=== PATIENT | female | born 1985 | race Caucasian/White ===

== ENCOUNTER 2018-06-29 08:30 | Emergency (ER) | payer BC ==
[2018-06-29 08:47] VITALS: BP 154/90; PULSE 84; O2SAT 99
--- NOTE | 2018-06-29 08:57 | ERPHSYRPT ---
- History of Present Illness Time Seen by Provider: 06/29/18 08:51 Source: patient Exam Limitations: no limitations Patient Subjective Stated Complaint: 9 years ago had jaw broken.. staets was hit in the jaw this weekend while playing with child.. states her jaw was dislocated but it has gone back into place. c/o pain and swelling to right ride of face Triage Nursing Assessment: alert and oriented.. states was hit in the chin this past weekend causing her jaw to dislocate.. has hx fractured jaw 9 years ago. states her jaw has gone back into place by itself. c/oi swelling to right side of face. no LOC Physician History: 32-year-old white female arrives with complaint of pain in her jaw symptoms since 3 days. According to patient she had a child jump up and hit her in the chin with patient's head 3 days ago. Patient feels like her jaw dislocated she feels like it went back in. She is complaining of pain in her jaw both sides states she cannot sleep secondary to the pain. Patient does have a history of a fracture of her jaw 8 or 9 years ago. Past medical history patient gives history of jaw fracture as above. Past surgical history thyroidectomy. Social history denies tobacco alcohol or illicit drug use. Timing/Duration: day(s) (3 days) Severity: moderate Modifying Factors: Improves With: nothing Associated Symptoms: No nausea, No vomiting, No abdominal pain, No shortness of breath, No heartburn, No diaphoresis, No cough, No chills, No chest pain, No fever, No headaches, No loss of appetite, No malaise, No rash, No syncope, No seizure, No weakness Allergies/Adverse Reactions: azithromycin Allergy (Verified 06/29/18 09:25) Immunizations Up to Date: Yes - Review of Systems Constitutional: No Fever, No Chills Eyes: No Symptoms Ears, Nose, & Throat: Mouth Pain (bilateral jaw pain), No Ear Pain, No Ear Discharge, No Hearing Changes, No Tinnitus, No Nose Pain, No Nose Congestion, No Nose Discharge, No Sinus Drainage, No Epistaxis, No Mouth Swelling, No Loose Teeth, No Throat Pain, No Throat Swelling, No Hoarse, No Painful Swallowing, No Snoring, No Stridor Respiratory: No Cough, No Dyspnea Cardiac: No Chest Pain, No Edema, No Syncope Abdominal/Gastrointestinal: No Abdominal Pain, No Nausea, No Vomiting, No Diarrhea Genitourinary Symptoms: No Dysuria Musculoskeletal: No Back Pain, No Neck Pain Skin: No Rash Neurological: No Dizziness, No Focal Weakness, No Sensory Changes Psychological: No Symptoms Endocrine: No Symptoms All Other Systems: Reviewed and Negative - Past Medical History Pertinent Past Medical History: Yes - Past Surgical History Past Surgical History: No - Social History Smoking Status: Never smoker Exposure to second hand smoke: No Drug Use: none Patient Lives Alone: No - Female History Hx Now: No - Nursing Vital Signs Nursing Vital Signs: Initial Vital Signs Temperature 98.4 F 06/29/18 08:41 Pulse Rate 84 06/29/18 08:41 Respiratory Rate 18 06/29/18 08:41 Blood Pressure 154/90 06/29/18 08:41 O2 Sat by Pulse Oximetry 99 06/29/18 08:41 Pain Scale Pain Intensity 8 - Physical Exam General Appearance: mild distress Eye Exam: PERRL/EOMI, eyes nml inspection Ears, Nose, Throat Exam: TMs normal, pharynx normal, moist mucous membranes, other (pain bilateral TMJ joint, clicking with opening and closing mouth.Patient is able to bite on a tongue depressor and keep me form pulling it away), No TM abnormal (R), No TM abnormal (L), No pharyngeal erythema, No tonsillar exudate Neck Exam: normal inspection, non-tender, supple, full range of motion Respiratory Exam: normal breath sounds, lungs clear, No respiratory distress Cardiovascular Exam: regular rate/rhythm, normal heart sounds, normal peripheral pulses, capillary refill <2 sec Gastrointestinal/Abdomen Exam: soft, normal bowel sounds, No tenderness, No mass Back Exam: normal inspection, normal range of motion, No CVA tenderness, No vertebral tenderness Extremity Exam: normal inspection, normal range of motion, pelvis stable Neurologic Exam: alert, oriented x 3, cooperative, tongue and quarter stitcher II-XII nml as tested, normal mood/affect, nml cerebellar function, nml station & gait, sensation nml, No motor deficits SpO2: 99 - Course Nursing assessment & vital signs reviewed: Yes - Radiology Exams Other X-ray Interpretation: Discussed w/ radiologist (X_RAY MANDIBLE: NO BONY, ARTICULAR, OR SOFT TISSUE ABNORMALITIES.) Ordered Tests: Active Orders 24 hr Category Date Time Status MANDIBLE (MINIMUM 4 VIEWS) Stat Exams 06/29/18 09:39 Completed Medication Summary Discontinued Medications Generic Name Dose Route Start Last Admin Trade Name Angus PRAlec Reason Stop Dose Admin Ketorolac Tromethamine 60 mg 06/29/18 09:18 06/29/18 09:24 Toradol 30 Mg Injection IM 06/29/18 09:19 60 mg STAT ONE Administration Ketorolac Tromethamine Confirm 06/29/18 09:20 Toradol 30 Mg Injection Administered 06/29/18 09:21 Dose 60 mg .ROUTE .[email or web address] ONE - Progress Progress: improved Progress Note: 06/29/18 08:57 32-year-old white female arrives with complaint of pain in her jaw symptoms for 3 days. She states that she has a history of fracture of her jaw 8-9 years ago. She states that the child jumped up and hit her in the jaw with his head 3 days ago she felt like the jaw dislocated but went back in. She has tenderness and clicking in her jaw for 3 days states she can't sleep because of the pain. I've asked the patient to proride a urine for hCG I do not want to shoot an x- ray without this she is 29 years old, she states she has not had a period for 9 years. She does state she had an IUD. However she has no history of surgery such as tubal ligation or sterilization. Once hCG is found to be negative Will go ahead and obtain a mandible series. And considered Toradol injection. 06/29/18 09:27 Apparently patient does not want to pay for hCG urine she insists she is not and has not had sex for several years. I've discussed this with the loss prevention and safety manager. Will go ahead and have radiology shield the patient's abdomen. We'll go ahead and give patient Toradol 60 IM for pain. 06/29/18 09:55 X-ray patient's mandible: No bony, articular, or soft tissue abnormalities. Patient does have a history of jaw fracture in the past she has palpable clicks with opening and closing her mouth. She thinks she possibly could have dislocated her jaw this weekend however this apparently has reduced. Patient given Toradol 60 mg IM. Will discharge patient with prescription for Naprosyn 500 mg orally twice a day. Patient put cold packs on her jaw 24-48 hours. Soft foods 48-72 hours. Patient follow-up with her dentist or family . Return for acute distress or for severe symptoms. Impression 1 contusion jaw. 2 jaw pain. 3 TMJ disease. 06/29/18 18:57 - Departure Time of Disposition: 09:57 Departure Disposition: Home Clinical Impression: Jaw pain, TMJ disease Contusion of jaw Qualifiers: Encounter type: initial encounter Qualified Code(s): S00.83XA - Contusion of other part of head, initial encounter Condition: Fair Critical Care Time: No Referrals: SARAH COATES MD [Primary Care Provider] - Additional Instructions: return home. Naprosyn 500 mg orally twice a day with food as needed for pain. Cold packs to area and also jaw 24-48 hrs.. Soft foods 48-72 hours. Follow-up with your dentist or family . Return for acute distress or for severe symptoms. Prescriptions: Naproxen 500 mg [Naprosyn 500 MG] 500 mg PO BIDPRN PRN #10 tablet PRN Reason: Pain
[2018-06-29] MEDS ORDERED: TORAdol 30 mg Injection IM ONE (09:18)
[2018-06-29] MEDS ORDERED: TORAdol 30 mg Injection ONE (09:20)
--- NOTE | 2018-06-29 09:53 | XRAY ---
Indication: Right mandible pain following injury 3 days ago. Comparison: None 4 views of the mandible obtained. No bony, articular, or soft tissue abnormalities.
== END 2018-06-29 10:06 | disposition home or self-care (01) ==
LOC: ED 08:30
DX: S00.83XA Contusion of other part of head, initial encounter (principal); R68.84 Jaw pain; M26.609 Unspecified temporomandibular joint disorder, unspecified side; W50.0XXA Accidental hit or strike by another person, initial encounter
CPT/HCPCS: 70110; 96372; 99284; J1885

== ENCOUNTER 2020-08-12 14:24 | Emergency (ER) | payer SELFPAY ==
[2020-08-12 14:44] VITALS: BP 129/63; PULSE 93; O2SAT 98
--- NOTE | 2020-08-12 16:47 | ERPHSYRPT ---
- History of Present Illness Source: patient Exam Limitations: no limitations Patient Subjective Stated Complaint: " I was walking and a blue healer dog bite my left leg" Triage Nursing Assessment: Pt presents to ER with complaints of dog bite that occurred approx 10 minutes prior to arrival. Pt states she was walking with a friend and a blue healer came up and bite her on her left outer leg. Bleeding is controlled and patient has a circular wound noted to leg. Pt is alert and oriented x 3. Able to ambulate. States pain is minimal. Pt respirations are unlabored at this time. She does state she is a little anxious. No other complaints at this time. Dog hold worker Gianni Boyer and phone number is [phone]. Physician History: 35 yo wf w dog bite L calf prior to arrival. Strange dog but hold worker has been found, and dog has been immunized. Pain is minimal(2), and she needs a Tdap. Method of Injury: other (Dog bite) Occurred: just prior to arrival Quality: aching Severity of Pain-Max: mild Severity of Pain-Current: mild Lower Extremities Pain: leg: left Modifying Factors: Improves With: movement Associated Symptoms: none Allergies/Adverse Reactions: azithromycin Allergy (Severe, Verified 08/12/20 14:44) Home Medications: Valacyclovir HCl [Valacyclovir] 500 mg PO DAILY 08/12/20 [History] Hx Tetanus, Diphtheria Vaccination/Date Given: No Hx Influenza Vaccination/Date Given: No Hx Pneumococcal Vaccination/Date Given: No Immunizations Up to Date: No Travel Risk - International Travel Have you traveled outside of the country in past 3 weeks: No - Coronavirus Screening Are you exhibiting any of the following symptoms?: No Close contact with a COVID-19 positive Pt in past 14-21 Days: No - Review of Systems Constitutional: No Symptoms Eyes: No Symptoms Ears, Nose, & Throat: No Symptoms Respiratory: No Symptoms Cardiac: No Symptoms Abdominal/Gastrointestinal: No Symptoms Genitourinary Symptoms: No Symptoms Skin: No Symptoms Neurological: No Symptoms Psychological: No Symptoms Endocrine: No Symptoms Hematologic/Lymphatic: No Symptoms Immunological/Allergic: No Symptoms - Past Medical History Pertinent Past Medical History: Yes Psycho-Social History: Other Other Medical History: Herpes - Past Surgical History Past Surgical History: Yes Other Surgical History: left sided thyriodectomy - Social History Smoking Status: Never smoker Exposure to second hand smoke: No Drug Use: none Patient Lives Alone: No Significant Family History: no pertinent family hx - Female History Hx Last Menstrual Period: 02/21/2009 Hx Now: No - Nursing Vital Signs Nursing Vital Signs: Initial Vital Signs Temperature 97.1 F 08/12/20 14:32 Pulse Rate 93 H 08/12/20 14:32 Respiratory Rate 18 08/12/20 14:32 Blood Pressure 129/63 08/12/20 14:32 O2 Sat by Pulse Oximetry 98 08/12/20 14:32 Pain Scale Pain Intensity 2 - Physical Exam General Appearance: no apparent distress Eyes, Ears, Nose, Throat Exam: normal ENT inspection, TMs normal, pharynx normal, moist mucous membranes Neck Exam: normal inspection, non-tender, supple, full range of motion, No Brudzinski, No Kernig's, No meningismus, No carotid bruit Cardiovascular/Respiratory Exam: normal breath sounds, regular rate/rhythm, heart sounds normal Gastrointestinal/Abdominal Exam: non-tender Back Exam: normal inspection Hips Exam: bilateral: non-tender, normal inspection, normal range of motion, no evidence of injury Legs Exam: bilateral leg: other (L lateral calf w superficial bite/good hemostasis/no need for repair) Knees Exam: bilateral knee: non-tender, normal inspection, normal range of motion, no evidence of injury Ankle Exam: bilateral ankle: non-tender, normal inspection, normal range of motion, no evidence of injury Neuro/Tendon Exam: normal sensation, normal motor functions, normal tendon functions, responds to pain Mental Status Exam: alert, oriented x 3, cooperative Skin Exam: normal color, warm, dry SpO2 Interpretation: normal SpO2: 98 O2 Delivery: Room Air - Course Nursing assessment & vital signs reviewed: Yes Ordered Tests: Medication Summary Discontinued Medications Generic Name Dose Route Start Last Admin Trade Name Freq PRN Reason Stop Dose Admin Diphtheria/Tetanus/Acell Pertussis 0.5 ml 08/12/20 16:48 08/12/20 16:51 Adacel Vial IM 08/12/20 16:49 0.5 ml .ONCE ONE Administration Diphtheria/Tetanus/Acell Pertussis Confirm 08/12/20 16:49 Adacel Vial Administered 08/12/20 16:50 Dose 0.5 ml IM .STK-MED ONE - Progress Progress Note: 08/12/20 16:46 Bite cleansed and dress per nursing.Superficial wo need for repair Tdap given 08/12/20 20:28 Counseled pt/family regarding: need for follow-up - Departure Departure Disposition: Home Clinical Impression: Dog bite of calf Condition: Stable Critical Care Time: No Referrals: SARAH COATES MD [Primary Care Provider] - Instructions: Animal Bites (DC) Additional Instructions: Wash bite twice a day with soap/water Watch for signs of infection-redness/pain/pus/temperature greater than 100.5 Prescriptions: Amoxicillin/Potassium Clav [Augmentin 875-125 Tablet] 1 each PO BID 7 Days #14 tablet Amoxicillin/Potassium Clav [Augmentin 875-125 Tablet] 1 each PO BID 7 Days #14 tablet
[2020-08-12] MEDS ORDERED: Adacel Vial IM ONE ×2 (16:48→16:49)
== END 2020-08-12 17:00 | disposition home or self-care (01) ==
LOC: ED 14:24
DX: S81.852A Open bite, left lower leg, initial encounter (principal); M79.662 Pain in left lower leg
CPT/HCPCS: 90471; 90715; 99283

== ENCOUNTER 2024-07-27 09:32 | Emergency (ER) | payer BC ==
[2024-07-27 09:47] VITALS: TEMP 97
--- NOTE | 2024-07-27 09:58 | ERPHSYRPT ---
- History of Present Illness Time Seen by Provider: 07/27/24 09:49 Historian: patient Exam Limitations: no limitations Patient Subjective Stated Complaint: pt sent from clinic for not feeling well for a month and having chest pressure and sob occ. she states she just wants to sleep all the time Triage Nursing Assessment: pt alert, arrived per wc, resp easy, chest clear, abd soft, ekg done on arrival and both es shown to , no edema noted, skin w.d.p Physician History: 39 years old female with no significant medical history presented in the ER with complains of chest pressure and generalized weakness fatigue and tiredness going on for almost a month. Patient was initially seen at urgent care and is sent in here for further evaluation. Patient reports she feels sleepy all the time for over a month, have some sinus/nasal congestion and lately having chest pressure and sometimes feeling short of breath because of coughing. Cough is nonproductive. Initially thought this might be seasonal allergies but is not getting any better. No history of coronary artery disease. No history of DVT.. EKG is sinus rhythm with no acute ischemic changes. Aspirin Treatment Today: no aspirin today Allergies/Adverse Reactions: azithromycin Allergy (Severe, Verified 07/27/24 09:42) Hx Tetanus, Diphtheria Vaccination/Date Given: No Hx Influenza Vaccination/Date Given: No Hx Pneumococcal Vaccination/Date Given: No Immunizations Up to Date: Yes Travel Risk - International Travel Have you traveled outside of the country in past 3 weeks: No - Emerging Infectious Disease Are you exhibiting symptoms associated with any current EIDs: No - Review of Systems Constitutional: Fatigue, Weakness Eyes: No Symptoms Ears, Nose, & Throat: Nose Congestion, Nose Discharge Respiratory: Cough, Dyspnea Cardiac: Chest Pain Abdominal/Gastrointestinal: No Symptoms Genitourinary Symptoms: No Symptoms Musculoskeletal: No Symptoms Skin: No Symptoms Neurological: No Symptoms Endocrine: No Symptoms Hematologic/Lymphatic: No Symptoms - Past Medical History Pertinent Past Medical History: Yes Psycho-Social History: Other Other Medical History: Herpes - Past Surgical History Past Surgical History: Yes Other Surgical History: part of thryroid removed Significant Family History: no pertinent family hx - Female History Hx Last Menstrual Period: 16 years ago Hx Now: No - Social History Smoking Status: Never smoker Exposure to second hand smoke: No Drug Use: none - Social Determinants of Health Will the patient participate in the screening: Declined to provide - Nursing Vital Signs Nursing Vital Signs: Initial Vital Signs Temperature 97.0 F 07/27/24 09:46 Pulse Rate 85 07/27/24 09:46 Respiratory Rate 12 07/27/24 09:46 Blood Pressure 113/73 07/27/24 09:46 O2 Sat by Pulse Oximetry 100 07/27/24 09:46 Pain Scale Pain Intensity 4 - Physical Exam General Appearance: no apparent distress, alert Eye Exam: PERRL/EOMI Ears, Nose, Throat Exam: normal ENT inspection Neck Exam: normal inspection, non-tender, supple, carotid bruit, midline tenderness Respiratory Exam: normal breath sounds, lungs clear Cardiovascular Exam: regular rate/rhythm, normal heart sounds Gastrointestinal/Abdomen Exam: soft, normal bowel sounds, No tenderness Back Exam: normal inspection, normal range of motion Extremity Exam: normal inspection, normal range of motion Neurologic Exam: alert, oriented x 3, cooperative, technical sales specialist II-XII nml as tested Skin Exam: normal color SpO2 Interpretation: normal SpO2: 100 O2 Delivery: Room Air - Course EKG Interpreted by Me: RATE (86), Sinus Rhythm, NORMAL AXIS, NORMAL INTERVALS, NORMAL QRS Ordered Tests: Medication Summary Discontinued Medications Generic Name Dose Route Start Last Admin Trade Name Freq PRN Reason Stop Dose Admin Aspirin 324 mg 07/27/24 09:55 07/27/24 10:47 Aspirin 81 Mg Tab.Chew PO 07/27/24 09:56 324 mg STAT ONE Administration Aspirin Confirm 07/27/24 10:46 Aspirin 81 Mg Tab.Chew Administered 07/27/24 10:47 Dose 324 mg .ROUTE .STK-MED ONE Lab/Rad Data: Laboratory Result Diagrams 07/27/24 10:24 07/27/24 10:24 Laboratory Results 07/27/24 07/27/24 07/27/24 Range/Units 10:49 10:24 10:24 WBC (3.98-10.04) x10^3/uL RBC (3.93-5.22) x10^6/uL Hgb (11.2-15.7) g/dL Hct (34.1-44.9) % MCV (79.4-94.8) fL MCH (25.6-32.2) pg MCHC (32.2-35.5) g/dL RDW (11.7-14.4) % Plt Count (182-369) x10^3/uL MPV (9.4-12.3) fL Gran % (34.0-71.1) % Immature Gran % (Auto) (0.001-0.429) % Nucleat RBC Rel Count (0.00-0.2) % Eos # (Auto) (0.04-0.36) x10^3/uL Immature Gran # (Auto) (0.001-0.031) x10^3u/L Absolute Lymphs (auto) (1.18-3.74) x10^3/uL Absolute Monos (auto) (0.24-0.86) x10^3/uL Absolute Nucleated RBC (0.00-0.012) x10^3u/L Lymphocytes % (19.3-51.7) % Monocytes % (4.7-12.5) % Eosinophils % (0.7-5.8) % Basophils % (0.1-1.2) % Absolute Granulocytes (1.56-6.13) x10^3/uL Basophils # (0.01-0.08) x10^3/uL D-Dimer 0.21 (0.0-0.50) mg/L Sodium (135-145) mmol/L Potassium (3.5-5.1) mmol/L Chloride (98-107) mmol/L Carbon Dioxide (22-30) mmol/L Anion Gap (5-15) MEQ/L BUN (7-17) mg/dL Creatinine (0.52-1.04) mg/dL Estimated GFR ML/MIN Glucose (74-106) mg/dL Lactic Acid (0.4-2.0) Calcium (8.4-10.2) mg/dL Magnesium (1.6-2.3) mg/dL Total Bilirubin (0.2-1.3) mg/dL AST (14-36) U/L ALT (0-35) U/L Alkaline Phosphatase (38-126) U/L Troponin I < 0.012 (0.000-0.033) ng/mL NT-Pro-B Natriuret Pep (<300) pg/mL Serum Total Protein (6.3-8.2) g/dL Albumin (3.5-5.0) g/dL TSH 3rd Generation (0.470-4.680) mIU/L Urine Color Yellow (Yellow) Urine Appearance Clear (Clear) Urine pH 7.0 (4.6-8.0) Ur Specific [place] 1.010 (1.005-1.030) Urine Protein Negative (Negative) Urine Glucose (UA) Negative (Negative) mg/dL Urine Ketones Negative (Negative) Urine Blood Negative (Negative) Urine Nitrite Negative (Negative) Urine Bilirubin Negative (Negative) Urine Urobilinogen 0.2 (0.2) mg/dL Ur Leukocyte Esterase Moderate A (Negative) U Hyaline Cast (Auto) NONE SEEN (0-2) /LPF Urine Microscopic RBC 3-5 (0-5) /HPF Urine Microscopic WBC 6-10 A (0-5) /HPF Ur Epithelial Cells Rare (None Seen) /HPF Urine Bacteria Few A (None Seen) /HPF Urine Culture Reflexed YES (NO) 07/27/24 07/27/24 07/27/24 Range/Units 10:24 10:24 09:53 WBC 8.4 (3.98-10.04) x10^3/uL RBC 4.84 (3.93-5.22) x10^6/uL Hgb 13.0 (11.2-15.7) g/dL Hct 40.0 (34.1-44.9) % MCV 82.6 (79.4-94.8) fL MCH 26.9 (25.6-32.2) pg MCHC 32.5 (32.2-35.5) g/dL RDW 11.9 (11.7-14.4) % Plt Count 245 (182-369) x10^3/uL MPV 9.0 L (9.4-12.3) fL Gran % 67.1 (34.0-71.1) % Immature Gran % (Auto) 0.2 (0.001-0.429) % Nucleat RBC Rel Count 0.0 (0.00-0.2) % Eos # (Auto) 0.19 (0.04-0.36) x10^3/uL Immature Gran # (Auto) 0.02 (0.001-0.031) x10^3u/L Absolute Lymphs (auto) 1.99 (1.18-3.74) x10^3/uL Absolute Monos (auto) 0.53 (0.24-0.86) x10^3/uL Absolute Nucleated RBC 0.00 (0.00-0.012) x10^3u/L Lymphocytes % 23.7 (19.3-51.7) % Monocytes % 6.3 (4.7-12.5) % Eosinophils % 2.3 (0.7-5.8) % Basophils % 0.4 (0.1-1.2) % Absolute Granulocytes 5.65 (1.56-6.13) x10^3/uL Basophils # 0.03 (0.01-0.08) x10^3/uL D-Dimer (0.0-0.50) mg/L Sodium 140 (135-145) mmol/L Potassium 4.5 (3.5-5.1) mmol/L Chloride 106 (98-107) mmol/L Carbon Dioxide 25 (22-30) mmol/L Anion Gap 13.3 (5-15) MEQ/L BUN 11 (7-17) mg/dL Creatinine 0.82 (0.52-1.04) mg/dL Estimated GFR 92.7 ML/MIN Glucose 94 (74-106) mg/dL Lactic Acid 1.9 (0.4-2.0) Calcium 9.4 (8.4-10.2) mg/dL Magnesium 2.2 (1.6-2.3) mg/dL Total Bilirubin 0.60 (0.2-1.3) mg/dL AST 30 (14-36) U/L ALT 36 H (0-35) U/L Alkaline Phosphatase 78 (38-126) U/L Troponin I (0.000-0.033) ng/mL NT-Pro-B Natriuret Pep 23.1 (<300) pg/mL Serum Total Protein 6.7 (6.3-8.2) g/dL Albumin 4.3 (3.5-5.0) g/dL TSH 3rd Generation 1.365 (0.470-4.680) mIU/L Urine Color (Yellow) Urine Appearance (Clear) Urine pH (4.6-8.0) Ur Specific [place] (1.005-1.030) Urine Protein (Negative) Urine Glucose (UA) (Negative) mg/dL Urine Ketones (Negative) Urine Blood (Negative) Urine Nitrite (Negative) Urine Bilirubin (Negative) Urine Urobilinogen (0.2) mg/dL Ur Leukocyte Esterase (Negative) U Hyaline Cast (Auto) (0-2) /LPF Urine Microscopic RBC (0-5) /HPF Urine Microscopic WBC (0-5) /HPF Ur Epithelial Cells (None Seen) /HPF Urine Bacteria (None Seen) /HPF Urine Culture Reflexed (NO) - Progress Progress: improved, re-examined Air Movement: good Progress Note: 07/27/24 12:08 39 years old is evaluated in the ER for chest pressure for the last few days and having URI cough congestion symptoms along with increased sleepiness and feeling weak fatigued and tired. Patient is not in any distress, EKG is normal sinus rhythm with no acute ischemic changes. Chest x-ray is negative for any acute cardiopulmonary findings reviewed by me followed by official read. Patient is not tachypneic or tachycardic. Oxygen saturation in upper 90s. Normal white count, chemistries unremarkable with negative troponin and D- dimers. Patient refused to have flu and COVID swab and also did not want test. Patient's symptoms are possibly viral etiology with some element of pleurisy could be contributing, I would give her steroids to go home. She does have UTI and started on Keflex. Discussed signs symptoms of worsening needing return to ER which she seems understanding. Stable for discharge. Complexity of problems addressed moderate to acute Complexity of data reviewed/analyzed: Moderate Risk of complications/morbidity/mortality associated with current condition: Low risk Blood Culture(s) Obtained: No Antibiotics given: No Counseled pt/family regarding: lab results, diagnosis, need for follow-up, rad results Medical Desision Making - Diagnostic Testing Diagnostic test were ordered, analyzed, and reviewed by me: Yes Radiological Interpretation: Interpreted by me, Reviewed by me - Risk of complications The pt has a mod risk of morbidity or mortality based on: Need for prescription drug management - Departure Departure Disposition: Home Clinical Impression: Atypical chest pain, UTI (urinary tract infection) Condition: Stable Critical Care Time: No Referrals: SARAH COATES MD [Primary Care Provider] - Follow up with PCP 1 day Instructions: Chest pain in adults - ED discharge instructions Additional Instructions: tylenol as needed, follow up with PCP for re evaluations, return to ER for any worsening Prescriptions: Cephalexin Mh 500 mg [Keflex 500 mg] 500 mg PO TID #21 cap Methylprednisolone Packet [Medrol Dosepack] 4 mg PO UD #1 packet
[2024-07-27 10:24] LABS: Absolute Neutrophil Ct (ANC) 5.65 x10^3/uL (1.56-6.13); BASOPHIL % 0.4 % (0.1-1.2); Basophil (Absolute #) 0.03 x10^3/uL (0.01-0.08); Eosinophil % 2.3 % (0.7-5.8); Eosinophil (Absolute #) 0.19 x10^3/uL (0.04-0.36); IMMATURE GRAN # 0.02 x10^3u/L (0.001-0.031); IMMATURE GRAN % 0.2 % (0.001-0.429); Lymphocyte (Absolute #) 1.99 x10^3/uL (1.18-3.74); Lymphocytes % 23.7 % (19.3-51.7); Mean Cell Volume 82.6 fL (79.4-94.8); Mean Corpuscular Hemoglobin 26.9 pg (25.6-32.2); Mean Corpuscular Hgb Concent. 32.5 g/dL (32.2-35.5); Monocyte (Absolute #) 0.53 x10^3/uL (0.24-0.86); Monocytes % 6.3 % (4.7-12.5); Neutrophil % 67.1 % (34.0-71.1); Platelet Count 245 x10^3/uL (182-369); Red Blood Count 4.84 x10^6/uL (3.93-5.22); Red Cell Distribution Width 11.9 % (11.7-14.4); White Blood Count 8.4 x10^3/uL (3.98-10.04)
[2024-07-27] MEDS ORDERED: BABY ASPIRIN 81 MG CHEW ONE (10:46)
[2024-07-27] MEDS: BABY ASPIRIN 81 MG CHEW PO ONE (10:47)
[2024-07-27 11:08] LABS: ALBUMIN 4.3 g/dL (3.5-5.0); ANION GAP 13.3 MEQ/L (5-15); BILIRUBIN,TOTAL 0.6 mg/dL (0.2-1.3); Calcium 9.4 mg/dL (8.4-10.2); Creatinine 1 0.82 mg/dL (0.52-1.04); EST GLOMERULAR FILTRATION RATE 92.7 ML/MIN; MAGNESIUM 2.2 mg/dL (1.6-2.3); NT PRO BNPII 23.1 pg/mL (<300); Potassium 4.5 mmol/L (3.5-5.1); TSH, 3RD Generation 1.365 mIU/L (0.470-4.680); Total Protein 6.7 g/dL (6.3-8.2)
[2024-07-27 11:10] LABS: Appearance Clear (Clear); Bacteria Few /HPF (None Seen); Bilirubin Negative (Negative); Blood Negative (Negative); Epithelial Cells Rare /HPF (None Seen); Glucose, Urine Negative (Negative); Hyaline Casts NONE SEEN /LPF (0-2); Ketones Negative (Negative); Leukocyte Esterase Moderate (Negative); Nitrite Negative (Negative); Protein,Urine Dip Negative (Negative); Urobilinogen 0.2 mg/dL (0.2)
[2024-07-27 11:31] VITALS: RESP 18
--- NOTE | 2024-07-27 11:52 | XRAY ---
Indication: Pain. Comparison: None Portable chest demonstrates normal heart, lungs, and bony thorax.
[2024-07-27 12:11] VITALS: O2SAT 100
[2024-07-27 12:32] VITALS: BP 156/89; PULSE 70
== END 2024-07-27 12:32 | disposition home or self-care (01) ==
LOC: ED 09:32
DX: N39.0 Urinary tract infection, site not specified (principal); R07.89 Other chest pain; R53.83 Other fatigue; Z79.52 Long term (current) use of systemic steroids; Z79.899 Other long term (current) drug therapy
CPT/HCPCS: 36415; 71045; 80053; 81001; 83605; 83735; 83880; 84443; 84484; 85025; 85379; 87086; 93005; 99284; 99285; A9270-GY